=== PATIENT | female | born 1995 | race Caucasian/White ===

== ENCOUNTER 2022-01-08 14:16 | Emergency (ER) | payer OTHER ==
[~2022-01-08] VITALS: Wt 47.6 kg
== END 2022-01-08 16:58 | disposition home or self-care (01) ==
LOC: ED 14:16
DX: S66.911A Strain of unspecified muscle, fascia and tendon at wrist and hand level, right hand, initial encounter (principal); S60.221A Contusion of right hand, initial encounter; S09.90XA Unspecified injury of head, initial encounter; W18.39XA Other fall on same level, initial encounter; Y93.89 Activity, other specified; Y92.89 Other specified places as the place of occurrence of the external cause; Y99.8 Other external cause status

== ENCOUNTER 2022-07-13 14:13 | Emergency (ER) | payer OTHER ==
[~2022-07-13] VITALS: Ht 157.5 cm; Wt 47.6 kg
[2022-07-13] MEDS ORDERED: BENZONATATE100 M1 PO (16:49)
[2022-07-13] MEDS ORDERED: CETIRIZINE10 MG PO (16:49)
== END 2022-07-13 16:55 | disposition home or self-care (01) ==
LOC: ED 14:13
DX: J06.9 Acute upper respiratory infection, unspecified (principal); Z20.822 Contact with and (suspected) exposure to COVID-19

== ENCOUNTER 2022-09-29 22:20 | Emergency (ER) | payer OTHER ==
[~2022-09-29 22:20] MED LIST: BENZONATATE100 M1 PO; CETIRIZINE10 MG PO
== END 2022-09-30 02:11 | disposition home or self-care (01) ==
LOC: ED 22:20
DX: B34.9 Viral infection, unspecified (principal); Z20.822 Contact with and (suspected) exposure to COVID-19

== ENCOUNTER 2022-10-27 22:34 | Emergency (ER) | payer OTHER ==
[~2022-10-27] VITALS: Ht 157.4 cm; Wt 47.6 kg
[2022-10-27] MEDS ORDERED: ZOLOFT100 MG PO (22:46)
[2022-10-27] MEDS ORDERED: VIBRAMYCIN100 MG PO (22:58)
[2022-10-27 23:04] LABS: BILIRUBIN Negative (Negative); BLOOD Negative (Negative); CLARITY Cloudy (Clear); COLOR Yellow (Yellow); GLUCOSE Negative (Negative); KETONE Negative (Negative); LEUKO ESTERASE Negative (Negative); NITRITE Negative (Negative); SPECIFIC GRAVITY >= 1.030 (1.001-1.030); UROBILINOGEN 0.2 E.U./dl (0.0-1.0)
[2022-10-27 23:25] LABS: EPITHELIAL CELLS 31-40
[2022-10-27 23:26] LABS: BACTERIA 2+; RBC 0-2 rbc/hpf (0-2); WBC 0-2 wbc/hpf (0-5)
== END 2022-10-27 23:15 | disposition home or self-care (01) ==
LOC: ED 22:34
PROVIDERS: Nurse Practitioner Family
DX: A64 Unspecified sexually transmitted disease (principal)

== ENCOUNTER 2022-12-20 20:25 | Emergency (ER) | payer OTHER ==
[~2022-12-20] VITALS: Ht 157.4 cm; Wt 46.7 kg
[~2022-12-20 20:25] MED LIST changes: +VIBRAMYCIN100 MG PO; +ZOLOFT100 MG PO
[2022-12-20] MEDS ORDERED: IBU800 M2 PO (21:00)
== END 2022-12-20 22:30 | disposition home or self-care (01) ==
LOC: ED 20:25
DX: S66.211A Strain of extensor muscle, fascia and tendon of right thumb at wrist and hand level, initial encounter (principal); Z79.899 Other long term (current) drug therapy; Y08.89XA Assault by other specified means, initial encounter; Y93.89 Activity, other specified; Y92.89 Other specified places as the place of occurrence of the external cause; Y99.8 Other external cause status

== ENCOUNTER 2023-02-22 10:38 | Emergency (ER) | payer OTHER ==
[~2023-02-22] VITALS: Ht 157.4 cm; Wt 46.7 kg
[~2023-02-22 10:38] MED LIST changes: +IBU800 M2 PO
[2023-02-22 11:13] LABS: BASO # 0.1 10*3/uL (0.0-0.1); BASO % 0.3 % (0.0-1.0); HEMATOCRIT 41.6 % (37.0-47.0); LYMPH % 6.6 % (27.0-41.0); MEAN CELL VOLUME 90.4 fl (81.0-99.0); MEAN CORPUSCULAR HGB 29.8 pg (27.0-31.0); MEAN CORPUSCULAR HGB CONC 32.9 g/dl (33.0-37.0); MEAN PLATELET VOLUME 11.4 fl (9.6-12.3); MONO # 0.4 10*3/uL (0.1-1.0); MONO % 2.8 % (3.0-9.0); NEUT % 89.7 % (47.0-73.0); PLATELET COUNT AUTOMATED 185 10*3/uL (130-400); RED CELL DISTRI WIDTH 12.7 % (0-14.5); WHITE BLOOD COUNT 14.4 10*3/uL (4.8-10.8)
[2023-02-22 11:52] LABS: ALKALINE PHOSPHATASE 47 U/L (46-116); BUN 15 mg/dl (9-23); CHLORIDE 107 mmol/L (98-107); LIPASE 30 U/L (12-53); POTASSIUM 4.2 mmol/L (3.4-5.1); SGPT/ALT 9 U/L (10-49); TOTAL PROTEIN 7.3 gm/dL (6.0-8.0)
[2023-02-22 12:35] LABS: BILIRUBIN Negative (Negative); BLOOD Negative (Negative); CLARITY Clear (Clear); COLOR Yellow (Yellow); GLUCOSE Negative (Negative); KETONE Negative (Negative); LEUKO ESTERASE Negative (Negative); NITRITE Negative (Negative); UROBILINOGEN 0.2 E.U./dl (0.0-1.0)
[2023-02-22 12:50] LABS: PH 8.5 (4.5-8.0)
[2023-02-22 12:51] LABS: BACTERIA TRACE; RBC 0-2 rbc/hpf (0-2); WBC 0-2 wbc/hpf (0-5)
[2023-02-22] MEDS ORDERED: KETOROLAC10 MG PO (13:20)
== END 2023-02-22 13:36 | disposition home or self-care (01) ==
LOC: ED 10:38
PROVIDERS: Emergency Medicine
DX: N20.0 Calculus of kidney (principal); F32.A Depression, unspecified